=== PATIENT | male | born 1985 | race African-American/Black ===

== ENCOUNTER 2019-02-24 06:44 | Emergency (ER) | payer BC ==
[~2019-02-24] VITALS: Ht 190.5 cm; Wt 61.2 kg
[~2019-02-24 06:44] MED LIST: FLEXERIL PO; NOHOMEMEDICATIONS; PROMETHAZINE/C118 ML PO; ULTRAM 50MG TAB50 MG PO
[2019-02-24 07:16] LABS: INFLUENZA A ANTIGEN Negative (Negative)
[2019-02-24] MEDS ORDERED: TAMIFLU75 MG PO (07:49)
[2019-02-24 08:06] VITALS: BP 120/76
== END 2019-02-24 08:08 | disposition home or self-care (01) ==
LOC: M.ERS 06:44
PROVIDERS: Emergency Medicine
DX: J11.1 Influenza due to unidentified influenza virus with other respiratory manifestations (principal); Z91.013 Allergy to seafood